=== PATIENT | male | born 1955 | race Two or more races ===

== ENCOUNTER 2022-04-12 07:15 | Outpatient (CLI) | payer OTHER | END 2022-04-12 07:18 | disposition home or self-care (01) | LOC: NUCLEAR 07:15 | PROVIDERS: ATTEND Internal Medicine Cardiovascular Disease | DX: I25.119 Atherosclerotic heart disease of native coronary artery with unspecified angina pectoris (principal) | CPT/HCPCS: 78452; 93017; A9500; J0153 ==

== ENCOUNTER 2022-04-12 11:09 | Outpatient (CLI) | payer OTHER | END 2022-04-12 11:13 | disposition home or self-care (01) | LOC: RAD 11:09 | PROVIDERS: ATTEND Student in an Organized Health Care Education/Training Program | DX: M51.36 Other intervertebral disc degeneration, lumbar region (principal); M54.16 Radiculopathy, lumbar region ==

== ENCOUNTER 2022-04-13 08:27 | Outpatient (CLI) | payer OTHER | END 2022-04-13 08:28 | disposition home or self-care (01) | LOC: LAB 08:27 | PROVIDERS: ATTEND Internal Medicine Cardiovascular Disease | DX: E78.00 Pure hypercholesterolemia, unspecified (principal); E11.9 Type 2 diabetes mellitus without complications; I10 Essential (primary) hypertension ==

== ENCOUNTER 2022-09-05 09:13 | Outpatient (CLI) | payer OTHER | END 2022-09-05 09:22 | disposition home or self-care (01) | LOC: LAB 09:13 | DX: I11.9 Hypertensive heart disease without heart failure (principal); E11.9 Type 2 diabetes mellitus without complications; R00.2 Palpitations; E78.2 Mixed hyperlipidemia; M54.2 Cervicalgia ==

== ENCOUNTER 2022-10-18 07:27 | Outpatient (CLI) | payer OTHER | END 2022-10-18 07:29 | disposition home or self-care (01) | LOC: LAB 07:27 | DX: E78.2 Mixed hyperlipidemia (principal); E53.9 Vitamin B deficiency, unspecified; Z11.3 Encounter for screening for infections with a predominantly sexual mode of transmission; E83.52 Hypercalcemia; M06.9 Rheumatoid arthritis, unspecified; Z12.11 Encounter for screening for malignant neoplasm of colon; R10.9 Unspecified abdominal pain; B18.2 Chronic viral hepatitis C; Z12.5 Encounter for screening for malignant neoplasm of prostate; M10.071 Idiopathic gout, right ankle and foot; N39.0 Urinary tract infection, site not specified; E03.8 Other specified hypothyroidism; E11.9 Type 2 diabetes mellitus without complications; B96.81 Helicobacter pylori [H. pylori] as the cause of diseases classified elsewhere; K29.00 Acute gastritis without bleeding ==

== ENCOUNTER 2022-10-18 08:44 | Outpatient (CLI) | payer OTHER | END 2022-10-18 08:48 | disposition home or self-care (01) | LOC: SONOGRAMA 08:44 | DX: R10.13 Epigastric pain (principal); N18.9 Chronic kidney disease, unspecified ==

== ENCOUNTER 2022-12-28 10:03 | Inpatient (IN) | payer OTHER ==
[~2022-12-28] VITALS: Ht 170.2 cm; Wt 113.9 kg
[2022-12-28 12:09] LABS: HEMATOCRIT 34.6 % (39.0-48.0); HEMOGLOBIN 11.3 g/dL (13-16.00); MEAN CELL VOLUME 99.1 fL (80.0-100.00); MEAN CORPUSCULAR HEMOGLOBIN 32.4 pg (27.00-32.0); MEAN CORPUSCULAR HGB CONC 32.7 g/dl (32.0-36.0); PLATELET COUNT 202 K/uL (150-450); RED CELL DISTRIBUTION WIDTH 14.1 % (11.5-14.5)
[2022-12-28 12:38] LABS: INR 1.11; PARTIAL THROMBOPLASTIN TIME 30.8 SECONDS (22.0-34.0); PROTHROMBIN TIME 11.6 SECONDS (9.0-11.5)
[2022-12-28 12:45] LABS: ALBUMIN 3.6 gm/dL (3.4-5.0); BILIRUBIN TOTAL 0.39 mg/dL (0.3-1.2); BILIRUBIN,CONJUGATED 0.13 mg/dL (0.0-0.2); BILIRUBIN,UNCONJUGATED 0.26 mg/dL (0.0-0.6); CALCIUM 8.4 mg/dL (8.5-10.1); CREATININE SERUM 3.4 mg/dL (0.70-1.30); GFR 18.1; TOTAL PROTEIN 6.5 gm/dL (6.4-8.2)
[2022-12-28 12:58] LABS: POTASSIUM 8.41 mEq/L (3.5-5.1)
[2022-12-28 16:43] LABS: ABG PH 7.211 (7.35-7.45)
[2022-12-28 16:44] LABS: ABG PO2 89.5 mmHg (80-100); ABG pCO2 31.7 mmHg (35-45); BASE EXCESS 14.1 mmol/l; BICARBONATE 12.4 mmol/l (23-25); SaO2 93.7 %; Tco2 13.4 mmol/l; allen test SATISFACTORY; o2 21 %; puncture site RADIAL RIGHT
[2022-12-28 18:18] LABS: BLOOD UREA NITROGEN 72 mg/dL (7-18); BUN CREA RATIO 24 (7.0-25.0); CALCIUM 8.6 mg/dL (8.5-10.1); CARBON DIOXIDE 16 mEq/L (21-32); CHOLESTEROL 71 mg/dL (0-200); CKMB 3.3 NG/ML (0.5-3.6); CREATININE SERUM 2.97 mg/dL (0.70-1.30); GFR 21.16; GLUCOSE FASTING 53 mg/dL (65-100); HDL 24 mg/dl (40-60); LDL 20 mg/dl (0-130); OSMOLALITY SERUM 292 MOSM/KG (275-295); PHOSPHOKINASE CREATININE 312 U/L (39-308); SODIUM 137 mmol/L (136-145); TRIGLYCERIDES 136 mg/dL (0-150); VLDL 27 (0-39)
[2022-12-28 18:27] LABS: ANION GAP 10 (10.0-20.0); C-REACTIVE PROTEIN < 0.29 MG/DL (0.00-0.29); CHLORIDE 118 mmol/L (98-107)
[2022-12-28 18:30] LABS: POTASSIUM 7.16 mEq/L (3.5-5.1)
[2022-12-28 20:38] LABS: CALCIUM 8.6 mg/dL (8.5-10.1); CREATININE SERUM 2.96 mg/dL (0.70-1.30); GFR 21.24
[2022-12-28 20:40] LABS: POTASSIUM 7.79 mEq/L (3.5-5.1)
[2022-12-29 06:53] LABS: HEMATOCRIT 36.1 % (39.0-48.0); HEMOGLOBIN 11.9 g/dL (13-16.00); MEAN CELL VOLUME 97.1 fL (80.0-100.00); MEAN CORPUSCULAR HEMOGLOBIN 32.2 pg (27.00-32.0); MEAN CORPUSCULAR HGB CONC 33.1 g/dl (32.0-36.0); PLATELET COUNT 200 K/uL (150-450); RED BLOOD COUNT 3.71 M/uL (4.00-6.00); RED CELL DISTRIBUTION WIDTH 13.8 % (11.5-14.5)
[2022-12-29 07:30] LABS: ALBUMIN 3.2 gm/dL (3.4-5.0); CALCIUM 8.1 mg/dL (8.5-10.1); CREATININE SERUM 2.18 mg/dL (0.70-1.30); GFR 30.23; PHOSPHOROUS 3.8 mg/dL (2.5-4.9)
[2022-12-29 08:35] LABS: POTASSIUM 6.27 mEq/L (3.5-5.1)
[2022-12-30 06:56] LABS: HEMATOCRIT 35.5 % (39.0-48.0); HEMOGLOBIN 12.1 g/dL (13-16.00); MEAN CELL VOLUME 95.1 fL (80.0-100.00); MEAN CORPUSCULAR HEMOGLOBIN 32.4 pg (27.00-32.0); MEAN CORPUSCULAR HGB CONC 34.1 g/dl (32.0-36.0); PLATELET COUNT 204 K/uL (150-450); RED BLOOD COUNT 3.74 M/uL (4.00-6.00); RED CELL DISTRIBUTION WIDTH 13.7 % (11.5-14.5)
[2022-12-30 07:23] LABS: ALBUMIN 3.1 gm/dL (3.4-5.0); CALCIUM 7.8 mg/dL (8.5-10.1); CREATININE SERUM 1.71 mg/dL (0.70-1.30); GFR 40.01; PHOSPHOROUS 3.6 mg/dL (2.5-4.9); POTASSIUM 4.28 mEq/L (3.5-5.1)
[2022-12-30 07:28] LABS: CALCIUM 8.1 mg/dL (8.5-10.1); CREATININE SERUM 1.69 mg/dL (0.70-1.30); GFR 40.56; POTASSIUM 4.03 mEq/L (3.5-5.1)
[2022-12-31 20:32] LABS: ALBUMIN 3.1 gm/dL (3.4-5.0); CALCIUM 8.1 mg/dL (8.5-10.1); CREATININE SERUM 1.47 mg/dL (0.70-1.30); GFR 47.64; PHOSPHOROUS 2.1 mg/dL (2.5-4.9); POTASSIUM 4.1 mEq/L (3.5-5.1)
[2023-01-03 06:46] LABS: HEMATOCRIT 39.7 % (39.0-48.0); MEAN CELL VOLUME 96.2 fL (80.0-100.00); MEAN CORPUSCULAR HEMOGLOBIN 31.4 pg (27.00-32.0); MEAN CORPUSCULAR HGB CONC 32.6 g/dl (32.0-36.0); PLATELET COUNT 208 K/uL (150-450); RED BLOOD COUNT 4.13 M/uL (4.00-6.00); RED CELL DISTRIBUTION WIDTH 13.6 % (11.5-14.5)
[2023-01-03 08:52] LABS: ALBUMIN 2.8 gm/dL (3.4-5.0); BILIRUBIN TOTAL 0.39 mg/dL (0.3-1.2); CALCIUM 7.8 mg/dL (8.5-10.1); CREATININE SERUM 1.21 mg/dL (0.70-1.30); GFR 59.63; GLOBULINA 2.9 G/DL (2.4-3.5); MAGNESIUM 1.6 mg/dL (1.8-2.4); PHOSPHOROUS 2.2 mg/dL (2.5-4.9); POTASSIUM 3.76 mEq/L (3.5-5.1); TOTAL PROTEIN 5.7 gm/dL (6.4-8.2)
[2023-01-04 07:36] LABS: ALBUMIN 2.8 gm/dL (3.4-5.0); BILIRUBIN TOTAL 0.33 mg/dL (0.3-1.2); CALCIUM 8.3 mg/dL (8.5-10.1); CREATININE SERUM 1.15 mg/dL (0.70-1.30); GFR 63.24; POTASSIUM 4.46 mEq/L (3.5-5.1); TOTAL PROTEIN 5.8 gm/dL (6.4-8.2)
== END 2023-01-06 21:01 | disposition home or self-care (01) | DRG 682 ==
LOC: ER 10:03 → ICU-2 16:13 → SEC-K 16:13 → ICU-2 22:52 → MEDI 12-30 11:29 → ICU-2 12-30 11:32 → ICU 12-30 21:09 → MEDJ 01-04 17:45
PROVIDERS: General Practice; Internal Medicine; Internal Medicine Nephrology; ADMIT Internal Medicine; ATTEND Internal Medicine
PROC: B24BZZZ Ultrasonography of Heart with Aorta (ICD-10-PCS; 2022-12-28)
PROC: BW24ZZZ Computerized Tomography (CT Scan) of Chest and Abdomen (ICD-10-PCS; 2022-12-29)
PROC: 4A12X4Z Monitoring of Cardiac Electrical Activity, External Approach (ICD-10-PCS; principal; 2023-01-04)
DX: N17.9 Acute kidney failure, unspecified (principal); I50.23 Acute on chronic systolic (congestive) heart failure; I13.0 Hypertensive heart and chronic kidney disease with heart failure and stage 1 through stage 4 chronic kidney disease, or unspecified chronic kidney disease; L98.419 Non-pressure chronic ulcer of buttock with unspecified severity; L08.9 Local infection of the skin and subcutaneous tissue, unspecified; B96.5 Pseudomonas (aeruginosa) (mallei) (pseudomallei) as the cause of diseases classified elsewhere; B95.2 Enterococcus as the cause of diseases classified elsewhere; B96.1 Klebsiella pneumoniae [K. pneumoniae] as the cause of diseases classified elsewhere; E87.5 Hyperkalemia; E86.0 Dehydration; I44.1 Atrioventricular block, second degree; J10.1 Influenza due to other identified influenza virus with other respiratory manifestations; I25.10 Atherosclerotic heart disease of native coronary artery without angina pectoris; Z95.1 Presence of aortocoronary bypass graft; I48.0 Paroxysmal atrial fibrillation; N18.30 Chronic kidney disease, stage 3 unspecified; Z20.822 Contact with and (suspected) exposure to COVID-19

== ENCOUNTER → 2023-02-25 08:19 | Outpatient (CLI) | payer OTHER ==
[2023-02-25 09:49] LABS: URINE APPEARANCE Clear; URINE BILIRRUBIN Negative (NEGATIVE); URINE BLOOD Negative; URINE COLOR Yellow; URINE LEUKOCYTE Negative; URINE NITRATE Negative; URINE PROTEIN Negative (NEGATIVE); URINE UROBILINOGEN 0.2 E.U./dl
[2023-02-25 09:53] LABS: URINE EPITHELIAL CELLS 2.7 uL (0.0-38.8); URINE RBC 2.2 uL (0.0-20.8)
[2023-02-25 09:59] LABS: URINE GLUCOSE >=1000 MG/DL (NEGATIVE); URINE WBC 0.3 uL (0.0-23.2)
[2023-02-25 10:09] LABS: ALBUMIN 3.7 gm/dL (3.4-5.0); BILIRUBIN TOTAL 0.57 mg/dL (0.3-1.2); CALCIUM 9.1 mg/dL (8.5-10.1); CHOL HDL RATIO 4.2 (0-5.0); CREATININE SERUM 1.64 mg/dL (0.70-1.30); GFR 41.86; GLOBULINA 3.6 G/DL (2.4-3.5); POTASSIUM 5.08 mEq/L (3.5-5.1); PROSTATIC SPECIFIC ANTIGEN 1.17 NG/ML (0.010-4.00); TOTAL PROTEIN 7.3 gm/dL (6.4-8.2); TSH 1.42 uIU/mL (0.358-3.74)
== END | disposition home or self-care (01) ==
LOC: LAB 08:19
PROVIDERS: ATTEND General Practice
DX: E11.9 Type 2 diabetes mellitus without complications (principal); M06.9 Rheumatoid arthritis, unspecified; E03.8 Other specified hypothyroidism; N39.9 Disorder of urinary system, unspecified; E78.2 Mixed hyperlipidemia; E83.52 Hypercalcemia; Z12.5 Encounter for screening for malignant neoplasm of prostate; E72.11 Homocystinuria; N40.0 Benign prostatic hyperplasia without lower urinary tract symptoms; N39.0 Urinary tract infection, site not specified

== ENCOUNTER 2023-03-04 08:46 | Outpatient (CLI) | payer OTHER | END 2023-03-04 08:50 | disposition home or self-care (01) | LOC: LAB 08:46 | DX: B96.81 Helicobacter pylori [H. pylori] as the cause of diseases classified elsewhere (principal); K29.00 Acute gastritis without bleeding ==

== ENCOUNTER 2023-05-04 08:16 | Outpatient (CLI) | payer OTHER | END 2023-05-04 11:50 | disposition home or self-care (01) | LOC: SONOGRAMA 08:16 | DX: M54.16 Radiculopathy, lumbar region (principal); M54.9 Dorsalgia, unspecified; N13.9 Obstructive and reflux uropathy, unspecified; M54.12 Radiculopathy, cervical region; R07.9 Chest pain, unspecified; E21.3 Hyperparathyroidism, unspecified | CPT/HCPCS: 72141; 72146; 72148 ==

== ENCOUNTER 2023-05-19 08:48 | Outpatient (CLI) | payer OTHER ==
[2023-05-19 10:18] LABS: URINE APPEARANCE Clear; URINE BILIRRUBIN Negative (NEGATIVE); URINE BLOOD Negative; URINE COLOR Yellow; URINE LEUKOCYTE Negative; URINE NITRATE Negative; URINE PROTEIN Negative (NEGATIVE)
[2023-05-19 10:20] LABS: URINE BACTERIA 12.5 uL (0.0-1933); URINE RBC 3.1 uL (0.0-20.8)
[2023-05-19 10:23] LABS: HEMATOCRIT 44.9 % (39.0-48.0); HEMOGLOBIN 14.6 g/dL (13-16.00); MEAN CELL VOLUME 93.8 fL (80.0-100.00); MEAN CORPUSCULAR HEMOGLOBIN 30.5 pg (27.00-32.0); MEAN CORPUSCULAR HGB CONC 32.5 g/dl (32.0-36.0); PLATELET COUNT 219 K/uL (150-450); RED BLOOD COUNT 4.79 M/uL (4.00-6.00); RED CELL DISTRIBUTION WIDTH 14.5 % (11.5-14.5)
[2023-05-19 10:24] LABS: URINE GLUCOSE >=1000 MG/DL (NEGATIVE)
[2023-05-19 10:35] LABS: ERYTHROCYTE SEDIMENTATION RATE 11 mm/hr
[2023-05-19 10:58] LABS: ALBUMIN 3.9 gm/dL (3.4-5.0); BILIRUBIN TOTAL 0.58 mg/dL (0.3-1.2); CALCIUM 9.2 mg/dL (8.5-10.1); CHOL HDL RATIO 2.4 (0-5.0); CREATININE SERUM 1.76 mg/dL (0.70-1.30); GFR 38.59; GLOBULINA 3.5 G/DL (2.4-3.5); POTASSIUM 5.68 mEq/L (3.5-5.1); TOTAL PROTEIN 7.4 gm/dL (6.4-8.2)
[2023-05-19 17:56] LABS: PROSTATIC SPECIFIC ANTIGEN 1.41 NG/ML (0.010-4.00); TSH 1.31 uIU/mL (0.358-3.74)
== END 2023-05-19 08:49 | disposition home or self-care (01) ==
LOC: LAB 08:48
PROVIDERS: ATTEND Internal Medicine Cardiovascular Disease
DX: E11.9 Type 2 diabetes mellitus without complications (principal); E78.2 Mixed hyperlipidemia; I11.9 Hypertensive heart disease without heart failure; R00.2 Palpitations; E03.8 Other specified hypothyroidism; N39.0 Urinary tract infection, site not specified; M06.9 Rheumatoid arthritis, unspecified; E83.52 Hypercalcemia; Z12.5 Encounter for screening for malignant neoplasm of prostate

== ENCOUNTER 2023-07-12 08:29 | Outpatient (CLI) | payer OTHER ==
[2023-07-12 09:56] LABS: ALBUMIN 3.9 gm/dL (3.4-5.0); BILIRUBIN TOTAL 0.83 mg/dL (0.3-1.2); CALCIUM 8.8 mg/dL (8.5-10.1); CHOL HDL RATIO 2.6 (0-5.0); CREATININE SERUM 1.69 mg/dL (0.70-1.30); GFR 40.44; GLOBULINA 3.2 G/DL (2.4-3.5); POTASSIUM 4.45 mEq/L (3.5-5.1); TOTAL PROTEIN 7.1 gm/dL (6.4-8.2)
== END 2023-07-12 08:30 | disposition home or self-care (01) ==
LOC: LAB 08:29
PROVIDERS: ATTEND Internal Medicine Cardiovascular Disease
DX: I11.9 Hypertensive heart disease without heart failure (principal); E78.2 Mixed hyperlipidemia

== ENCOUNTER 2023-10-16 09:05 | Outpatient (CLI) | payer OTHER | END 2023-10-16 09:08 | disposition home or self-care (01) | LOC: SONOGRAMA 09:05 | DX: N18.32 Chronic kidney disease, stage 3b (principal); E78.5 Hyperlipidemia, unspecified; I50.20 Unspecified systolic (congestive) heart failure; I12.9 Hypertensive chronic kidney disease with stage 1 through stage 4 chronic kidney disease, or unspecified chronic kidney disease; I73.9 Peripheral vascular disease, unspecified ==

== ENCOUNTER 2023-11-04 08:43 | Outpatient (CLI) | payer OTHER ==
[2023-11-04 10:26] LABS: URINE APPEARANCE Clear; URINE BILIRRUBIN Negative (NEGATIVE); URINE BLOOD Negative; URINE COLOR Yellow; URINE KETONE Negative (NEGATIVE); URINE LEUKOCYTE Negative; URINE NITRATE Negative; URINE PROTEIN Negative (NEGATIVE); URINE UROBILINOGEN 0.2 E.U./dl
[2023-11-04 10:32] LABS: URINE BACTERIA 27.7 uL (0.0-1933); URINE EPITHELIAL CELLS 4.9 uL (0.0-38.8); URINE RBC 3.5 uL (0.0-20.8); URINE WBC 2.6 uL (0.0-23.2)
[2023-11-04 10:52] LABS: URINE GLUCOSE >=1000 MG/DL (NEGATIVE)
[2023-11-04 11:04] LABS: BILIRUBIN TOTAL 0.98 mg/dL (0.3-1.2); CHOL HDL RATIO 2.2 (0-5.0); CREATININE SERUM 1.59 mg/dL (0.70-1.30); GFR 43.38; GLOBULINA 3.1 G/DL (2.4-3.5); POTASSIUM 4.12 mEq/L (3.5-5.1); TOTAL PROTEIN 7.1 gm/dL (6.4-8.2); TSH 1.2 uIU/mL (0.358-3.74)
== END 2023-11-04 08:49 | disposition home or self-care (01) ==
LOC: LAB 08:43
DX: E11.9 Type 2 diabetes mellitus without complications (principal); N39.0 Urinary tract infection, site not specified; E78.2 Mixed hyperlipidemia; E03.8 Other specified hypothyroidism; Z12.5 Encounter for screening for malignant neoplasm of prostate

== ENCOUNTER 2024-01-16 08:22 | Outpatient (CLI) | payer OTHER ==
[2024-01-16 09:00] LABS: PH,URINE 6.5 (5.0-8.0); URINE APPEARANCE Clear; URINE BILIRRUBIN Negative (NEGATIVE); URINE BLOOD Negative; URINE COLOR Yellow; URINE GLUCOSE Negative (NEGATIVE); URINE KETONE Negative (NEGATIVE); URINE LEUKOCYTE Negative; URINE NITRATE Negative; URINE PROTEIN Negative (NEGATIVE); URINE UROBILINOGEN 0.2 E.U./dl
[2024-01-16 09:02] LABS: URINE BACTERIA 7.5 uL (0.0-1933); URINE EPITHELIAL CELLS 1.5 uL (0.0-38.8)
[2024-01-16 09:09] LABS: URINE RBC 0.4 uL (0.0-20.8); URINE WBC 1.2 uL (0.0-23.2)
[2024-01-16 09:12] LABS: HEMATOCRIT 42.1 % (39.0-48.0); HEMOGLOBIN 14.2 g/dL (13-16.00); MEAN CELL VOLUME 96.5 fL (80.0-100.00); MEAN CORPUSCULAR HEMOGLOBIN 32.4 pg (27.00-32.0); MEAN CORPUSCULAR HGB CONC 33.6 g/dl (32.0-36.0); PLATELET COUNT 166 K/uL (150-450); RED BLOOD COUNT 4.37 M/uL (4.00-6.00); RED CELL DISTRIBUTION WIDTH 14.2 % (11.5-14.5)
[2024-01-16 09:55] LABS: BILIRUBIN TOTAL 1.1 mg/dL (0.3-1.2); CALCIUM 8.9 mg/dL (8.5-10.1); CHOL HDL RATIO 2.2 (0-5.0); CREATININE SERUM 1.48 mg/dL (0.70-1.30); GFR 46.99; GLOBULINA 3.2 G/DL (2.4-3.5); POTASSIUM 4.64 mEq/L (3.5-5.1); TOTAL PROTEIN 7.2 gm/dL (6.4-8.2); TSH 1.56 uIU/mL (0.358-3.74)
== END 2024-01-16 08:27 | disposition home or self-care (01) ==
LOC: LAB 08:22
PROVIDERS: ATTEND Internal Medicine Cardiovascular Disease
DX: I11.9 Hypertensive heart disease without heart failure (principal); E11.9 Type 2 diabetes mellitus without complications; R00.2 Palpitations; E78.2 Mixed hyperlipidemia

== ENCOUNTER → 2024-03-06 08:28 | Outpatient (CLI) | payer OTHER ==
[2024-03-06 09:43] LABS: URINE APPEARANCE Clear; URINE BILIRRUBIN Negative (NEGATIVE); URINE BLOOD Negative; URINE COLOR Yellow; URINE KETONE Negative (NEGATIVE); URINE LEUKOCYTE Negative; URINE NITRATE Negative; URINE PROTEIN Negative (NEGATIVE); URINE UROBILINOGEN 0.2 E.U./dl
[2024-03-06 09:56] LABS: URINE BACTERIA 7.5 uL (0.0-1933)
[2024-03-06 09:59] LABS: URINE CAST 0.61 uL (0.0-1.40); URINE EPITHELIAL CELLS 0.3 uL (0.0-38.8); URINE RBC 0.6 uL (0.0-20.8); URINE WBC 0.9 uL (0.0-23.2)
[2024-03-06 10:00] LABS: URINE GLUCOSE >=1000 MG/DL (NEGATIVE)
[2024-03-06 10:53] LABS: ALBUMIN 4.3 gm/dL (3.4-5.0); CALCIUM 9.4 mg/dL (8.5-10.1); CREATININE SERUM 1.6 mg/dL (0.70-1.30); GFR 42.95; PHOSPHOROUS 2.7 mg/dL (2.5-4.9); POTASSIUM 4.59 mEq/L (3.5-5.1)
== END | disposition home or self-care (01) ==
LOC: LAB 08:28
DX: N18.32 Chronic kidney disease, stage 3b (principal); E78.5 Hyperlipidemia, unspecified; I50.20 Unspecified systolic (congestive) heart failure; I12.9 Hypertensive chronic kidney disease with stage 1 through stage 4 chronic kidney disease, or unspecified chronic kidney disease; I73.9 Peripheral vascular disease, unspecified

== ENCOUNTER → 2024-05-11 08:37 | Outpatient (CLI) | payer OTHER ==
[2024-05-11 10:27] LABS: URINE APPEARANCE Clear; URINE BILIRRUBIN Negative (NEGATIVE); URINE BLOOD Negative; URINE COLOR Yellow; URINE KETONE Negative (NEGATIVE); URINE LEUKOCYTE Negative; URINE NITRATE Negative; URINE PROTEIN Negative (NEGATIVE); URINE UROBILINOGEN 0.2 E.U./dl
[2024-05-11 10:45] LABS: URINE BACTERIA 3.6 uL (0.0-1933); URINE CAST 0.14 uL (0.0-1.40); URINE EPITHELIAL CELLS 0.6 uL (0.0-38.8); URINE GLUCOSE >=1000 MG/DL (NEGATIVE); URINE WBC 0.4 uL (0.0-23.2)
[2024-05-11 10:58] LABS: HEMATOCRIT 45.2 % (39.0-48.0); HEMOGLOBIN 14.9 g/dL (13-16.00); MEAN CELL VOLUME 98.1 fL (80.0-100.00); MEAN CORPUSCULAR HEMOGLOBIN 32.4 pg (27.00-32.0); PLATELET COUNT 187 K/uL (150-450); RED CELL DISTRIBUTION WIDTH 14.7 % (11.5-14.5)
[2024-05-11 11:44] LABS: BILIRUBIN TOTAL 1.34 mg/dL (0.3-1.2); CALCIUM 9.2 mg/dL (8.5-10.1); CREATININE SERUM 1.4 mg/dL (0.70-1.30); GFR 50.1; GLOBULINA 3.3 G/DL (2.4-3.5); POTASSIUM 4.06 mEq/L (3.5-5.1); TOTAL PROTEIN 7.3 gm/dL (6.4-8.2); TSH 1.96 uIU/mL (0.358-3.74)
== END | disposition home or self-care (01) ==
LOC: LAB 08:37
PROVIDERS: ATTEND General Practice
DX: E72.11 Homocystinuria (principal); I10 Essential (primary) hypertension; E78.00 Pure hypercholesterolemia, unspecified; E03.8 Other specified hypothyroidism; R73.09 Other abnormal glucose; Z12.11 Encounter for screening for malignant neoplasm of colon; Z12.5 Encounter for screening for malignant neoplasm of prostate

== ENCOUNTER 2024-05-14 09:42 | Outpatient (CLI) | payer OTHER ==
[2024-05-14 12:49] LABS: ob POSITIVE (NEGATIVE)
== END 2024-05-14 13:07 | disposition home or self-care (01) ==
LOC: LAB 09:42
PROVIDERS: ATTEND General Practice
DX: E72.11 Homocystinuria (principal); I10 Essential (primary) hypertension; E78.00 Pure hypercholesterolemia, unspecified; E03.8 Other specified hypothyroidism; R73.09 Other abnormal glucose; Z12.11 Encounter for screening for malignant neoplasm of colon; Z12.5 Encounter for screening for malignant neoplasm of prostate

== ENCOUNTER → 2024-08-15 08:56 | Outpatient (CLI) | payer OTHER ==
[2024-08-15 09:31] LABS: BASO % 0.4 % (0.1-1.2); EOS # 0.65 (0.04-0.54); EOS % 8.2 % (0.7-7.0); HEMATOCRIT 43.9 % (40.1-51.0); HEMOGLOBIN 14.2 g/dL (13.7-17.5); LYMPH % 16.4 % (19.3-53.1); MEAN CORPUSCULAR HEMOGLOBIN 32.4 pg (25.6-32.2); MONO # 0.67 (0.24-0.82); MONO % 8.4 % (4.7-12.5); NEUT # 5.25 (1.56-6.13); NEUT % 66.2 % (34.0-71.1); PLATELET COUNT 194 K/uL (163-369); RED BLOOD COUNT 4.38 M/uL (4.63-6.08); RED CELL DISTRIBUTION WIDTH 14.9 % (11.6-14.4)
[2024-08-15 09:32] LABS: URINE APPEARANCE Clear; URINE BILIRRUBIN Negative (NEGATIVE); URINE BLOOD Negative; URINE COLOR Yellow; URINE KETONE Trace (NEGATIVE); URINE LEUKOCYTE Negative; URINE NITRATE Negative; URINE PROTEIN Negative (NEGATIVE); URINE UROBILINOGEN 0.2 E.U./dl
[2024-08-15 09:34] LABS: URINE BACTERIA 28.1 uL (0.0-1933); URINE CAST 4.56 uL (0.0-1.40); URINE EPITHELIAL CELLS 1.8 uL (0.0-38.8)
[2024-08-15 09:48] LABS: URINE GLUCOSE >=1000 MG/DL (NEGATIVE); URINE RBC 1.7 uL (0.0-20.8); URINE WBC 1.1 uL (0.0-23.2)
[2024-08-15 11:00] LABS: CALCIUM 8.6 mg/dL (8.5-10.1); CREATININE SERUM 2.13 mg/dL (0.70-1.30); GFR 30.87; POTASSIUM 4.69 mEq/L (3.5-5.1); TSH 1.67 uIU/mL (0.358-3.74)
== END | disposition home or self-care (01) ==
LOC: LAB 08:56
PROVIDERS: ATTEND General Practice
DX: R50.9 Fever, unspecified (principal); Z13.228 Encounter for screening for other metabolic disorders; N39.0 Urinary tract infection, site not specified; E03.8 Other specified hypothyroidism; Z12.5 Encounter for screening for malignant neoplasm of prostate; E72.11 Homocystinuria

== ENCOUNTER 2024-08-29 13:14 | Inpatient (IN) | payer OTHER ==
[~2024-08-29] VITALS: Ht 167.6 cm; Wt 72.6 kg
[2024-08-29] MEDS ORDERED: ELIQUIS2.5 MG PO (14:07)
[2024-08-29] MEDS ORDERED: CARVEDILOL ER40 MG PO (14:07)
[2024-08-29] MEDS ORDERED: LIPITOR80 MG PO (14:08)
[2024-08-29] MEDS ORDERED: LASIX40 MG PO (14:08)
[2024-08-29] MEDS ORDERED: JARDIANCE10 MG (14:08)
[2024-08-29] MEDS ORDERED: PLAVIX75 MG PO (14:08)
[2024-08-29] MEDS ORDERED: CANDESARTAN CILE8 MG (14:08)
[2024-08-29] MEDS ORDERED: PANTOPRAZOLE SO40 M2 PO (14:09)
[2024-08-29] MEDS ORDERED: 0.9 % SODIUM CHLORIDE 1,000 ML IV SCH (14:30)
[2024-08-29 15:19] LABS: INR 1.17; PARTIAL THROMBOPLASTIN TIME 28.5 SECONDS (22.0-34.0); PROTHROMBIN TIME 12.6 SECONDS (9.0-11.5)
[2024-08-29 15:23] LABS: BASO % 0.6 % (0.1-1.2); BILIRUBIN TOTAL 0.88 mg/dL (0.3-1.2); CREATININE SERUM 1.64 mg/dL (0.70-1.30); EOS % 7.3 % (0.7-7.0); GFR 41.74; GLOBULINA 3.7 G/DL (2.4-3.5); HEMATOCRIT 43.2 % (40.1-51.0); HEMOGLOBIN 13.6 g/dL (13.7-17.5); LYMPH % 18.3 % (19.3-53.1); MEAN CORPUSCULAR HEMOGLOBIN 31.3 pg (25.6-32.2); MONO # 0.74 (0.24-0.82); NEUT # 5.28 (1.56-6.13); NEUT % 64.6 % (34.0-71.1); PLATELET COUNT 211 K/uL (163-369); POTASSIUM 4.62 mEq/L (3.5-5.1); RED BLOOD COUNT 4.35 M/uL (4.63-6.08); RED CELL DISTRIBUTION WIDTH 14.6 % (11.6-14.4); TOTAL PROTEIN 7.7 gm/dL (6.4-8.2)
[2024-08-29 19:06] LABS: URINE APPEARANCE Clear; URINE BILIRRUBIN Negative (NEGATIVE); URINE BLOOD Negative; URINE COLOR Yellow; URINE KETONE Negative (NEGATIVE); URINE LEUKOCYTE Negative; URINE NITRATE Negative; URINE PROTEIN Negative (NEGATIVE); URINE UROBILINOGEN 0.2 E.U./dl
[2024-08-29 19:10] LABS: URINE BACTERIA 14.6 uL (0.0-1933); URINE EPITHELIAL CELLS 3.6 uL (0.0-38.8); URINE WBC 2.5 uL (0.0-23.2)
[2024-08-29 19:13] LABS: URINE CAST 0.58 uL (0.0-1.40); URINE GLUCOSE >=1000 MG/DL (NEGATIVE)
[2024-08-29] MEDS ORDERED: INSULIN LISPRO 1,000 UNIT/10 ML UNITS SUBCUTANEO PRN (20:30)
[2024-08-29] MEDS ORDERED: DEXTROSE 50 % IN WATER 0.5 G/ML DISP.SYRIN IV PRN (20:30)
[2024-08-29] MEDS ORDERED: PANTOPRAZOLE SODIUM 40 MG/VIAL VIAL IV SCH (21:00)
[2024-08-29 22:49] LABS: COVID-19 AG NEGATIVE (NEGATIVE)
[2024-08-30] MEDS ORDERED: PIPERACILLIN/TAZOBACTAM SODIUM 2.25 GM in DEXTROSE 5 % IN WATER 50 ML IV SCH
[2024-08-30 02:08] VITALS: BP 110/79; O2SAT 96
[2024-08-30] MEDS ORDERED: CANDESARTAN CILEXETIL 8 MG TAB PO SCH (09:00)
[2024-08-30] MEDS ORDERED: APIXABAN 2.5 MG TABLET PO SCH (09:00)
[2024-08-30] MEDS ORDERED: FUROsemide 40 MG TABLET PO SCH (09:00)
[2024-08-30] MEDS ORDERED: CARVEDILOL 25 MG TABLET PO SCH (09:00)
[2024-08-30] MEDS ORDERED: PATIENTS OWN MEDICATION (MEDICAMENTO EN PISO) PO SCH (09:00)
[2024-08-30] MEDS ORDERED: CLOPIDOGREL BISULFATE 75 MG TABLET PO SCH (09:00)
[2024-08-30] MEDS ORDERED: LINEZOLID IN DEXTROSE 5% 600 MG/300 ML PIGGYBAG IV SCH (17:00)
[2024-08-30] MEDS ORDERED: LACTOBACILLUS ACIDOPHILUS 1 CAP CAP PO SCH (17:00)
[2024-08-30] MEDS ORDERED: EMOLLIENTS 6 OZ BOTTLE TOP SCH (17:00)
[2024-08-30] MEDS ORDERED: ATORVASTATIN CALCIUM 40 MG TABLET PO SCH (17:00)
[2024-08-30 17:45] VITALS: BP 112/77; O2SAT 99
[2024-08-31 01:59] VITALS: BP 106/77; O2SAT 97
[2024-08-31] MEDS ORDERED: ATORVASTATIN CALCIUM 40 MG TABLET PO SCH (09:00)
[2024-08-31 09:25] VITALS: BP 126/84; O2SAT 98
[2024-08-31 17:00] VITALS: BP 136/94
[2024-09-01 01:54] VITALS: BP 118/68; O2SAT 99
[2024-09-01 09:16] VITALS: BP 132/91; O2SAT 98
[2024-09-01 18:15] VITALS: BP 129/92
[2024-09-02 00:56] VITALS: BP 119/87; O2SAT 96
[2024-09-02 07:26] LABS: BASO % 0.6 % (0.1-1.2); EOS % 8.9 % (0.7-7.0); HEMATOCRIT 41.5 % (40.1-51.0); HEMOGLOBIN 13.1 g/dL (13.7-17.5); LYMPH # 1.33 (1.18-3.74); LYMPH % 14.8 % (19.3-53.1); MONO # 0.85 (0.24-0.82); MONO % 9.5 % (4.7-12.5); NEUT # 5.92 (1.56-6.13); NEUT % 65.9 % (34.0-71.1); PLATELET COUNT 190 K/uL (163-369); RED BLOOD COUNT 4.22 M/uL (4.63-6.08); RED CELL DISTRIBUTION WIDTH 14.4 % (11.6-14.4)
[2024-09-02 08:07] LABS: ALBUMIN 3.2 gm/dL (3.4-5.0); BILIRUBIN TOTAL 0.91 mg/dL (0.3-1.2); CALCIUM 8.4 mg/dL (8.5-10.1); CREATININE SERUM 1.41 mg/dL (0.70-1.30); GFR 49.69; POTASSIUM 4.36 mEq/L (3.5-5.1); TOTAL PROTEIN 6.2 gm/dL (6.4-8.2)
[2024-09-02 08:08] LABS: C-REACTIVE PROTEIN 1.09 MG/DL (0.00-0.29)
[2024-09-02 08:11] LABS: ERYTHROCYTE SEDIMENTATION RATE 9 mm/hr (0-20)
[2024-09-02 09:17] VITALS: BP 140/82; O2SAT 99
[2024-09-02] MEDS ORDERED: APIXABAN 5 MG TABLET PO SCH (17:00)
[2024-09-02] MEDS ORDERED: LINEZOLID 600 MG TABLET PO SCH (17:00)
[2024-09-02 18:26] VITALS: BP 122/78
[2024-09-02] MEDS ORDERED: PANTOPRAZOLE SODIUM 40 MG TABLET.DR PO SCH (21:00)
[2024-09-03 01:28] VITALS: BP 134/85; O2SAT 92
[2024-09-03 09:45] VITALS: BP 11/81; O2SAT 98
[2024-09-03] MEDS ORDERED: LINEZOLID600 MG PO (13:20)
[2024-09-03] MEDS ORDERED: LUBRIDERM DAIL177 ML TOP (13:20)
[2024-09-03] MEDS ORDERED: ELIQUIS5 MG PO (13:20)
[2024-09-03] MEDS ORDERED: LEVOFLOXACIN750 MG PO (13:20)
[2024-09-03] MEDS ORDERED: INTESTINEX680 M1 PO (13:20)
== END 2024-09-03 15:21 | disposition home or self-care (01) | DRG 603 ==
LOC: ER 17:16 → MEDJ 20:58
PROVIDERS: Emergency Medicine; General Practice; ADMIT Internal Medicine; ATTEND Internal Medicine
PROC: BQ28ZZZ Computerized Tomography (CT Scan) of Left Knee (ICD-10-PCS; principal; 2024-08-29)
PROC: B54DZZZ Ultrasonography of Bilateral Lower Extremity Veins (ICD-10-PCS; 2024-08-29)
DX: L03.116 Cellulitis of left lower limb (principal); I82.402 Acute embolism and thrombosis of unspecified deep veins of left lower extremity; N17.9 Acute kidney failure, unspecified; I10 Essential (primary) hypertension; I25.10 Atherosclerotic heart disease of native coronary artery without angina pectoris

== ENCOUNTER → 2024-11-22 08:32 | Outpatient (CLI) | payer OTHER ==
[~2024-11-22 08:32] MED LIST: CANDESARTAN CILE8 MG; CARVEDILOL ER40 MG PO; ELIQUIS2.5 MG PO; ELIQUIS5 MG PO; INTESTINEX680 M1 PO; JARDIANCE10 MG; LASIX40 MG PO; LEVOFLOXACIN750 MG PO; LINEZOLID600 MG PO; LIPITOR80 MG PO; LUBRIDERM DAIL177 ML TOP; PANTOPRAZOLE SO40 M2 PO; PLAVIX75 MG PO
[2024-11-22 09:25] LABS: BASO % 0.6 % (0.1-1.2); EOS # 0.75 (0.04-0.54); EOS % 10.8 % (0.7-7.0); LYMPH # 1.52 (1.18-3.74); LYMPH % 22.0 % (19.3-53.1); MEAN PLATELET VOLUME 10.50 fl (9.4-12.4); MONO # 0.63 (0.24-0.82); MONO % 9.1 % (4.7-12.5); NEUT # 3.97 (1.56-6.13); NEUT % 57.4 % (34.0-71.1); RED CELL DISTRIBUTION WIDTH 14.6 % (11.6-14.4)
[2024-11-22 09:27] LABS: URINE APPEARANCE Clear; URINE BILIRRUBIN Negative (NEGATIVE); URINE BLOOD Negative; URINE COLOR Yellow; URINE KETONE Negative (NEGATIVE); URINE LEUKOCYTE Negative; URINE NITRATE Negative; URINE PROTEIN Negative (NEGATIVE); URINE UROBILINOGEN 0.2 E.U./dl
[2024-11-22 09:31] LABS: URINE BACTERIA 6.0 uL (0.0-1933)
[2024-11-22 10:02] LABS: URINE CAST 0.00 uL (0.0-1.40); URINE EPITHELIAL CELLS 1.3 uL (0.0-38.8); URINE GLUCOSE >=1000 MG/DL (NEGATIVE); URINE RBC 1.0 uL (0.0-20.8); URINE WBC 1.5 uL (0.0-23.2)
[2024-11-22 10:26] LABS: ALT/SGPT 30.0 U/L (12-78); AST/SGOT 21.0 U/L (15-37); BILIRUBIN TOTAL 1.13 mg/dL (0.3-1.2); BUN CREA RATIO 15.0 (7.0-25.0); CHOL HDL RATIO 2.0 (0-5.0); CREATININE SERUM 1.56 mg/dL (0.70-1.30); GFR 44.22; GLOBULINA 3.7 G/DL (2.4-3.5); GLUCOSE FASTING 89.0 mg/dL (65-100); HDL 51.0 mg/dl (40-60); LDL 32.0 mg/dl (0-130); OSMOLALITY SERUM 288.0 MOSM/KG (275-295); PROSTATIC SPECIFIC ANTIGEN 1.7 NG/ML (0.010-4.00); TSH 1.81 uIU/mL (0.358-3.74); VLDL 18.0 (0-39)
== END | disposition home or self-care (01) ==
LOC: LAB 08:32
DX: N40.0 Benign prostatic hyperplasia without lower urinary tract symptoms (principal); I10 Essential (primary) hypertension; E11.9 Type 2 diabetes mellitus without complications; E78.00 Pure hypercholesterolemia, unspecified

== ENCOUNTER 2025-03-04 07:51 | Outpatient (CLI) | payer OTHER ==
[2025-03-04 08:34] LABS: URINE APPEARANCE Clear; URINE BILIRRUBIN Negative (NEGATIVE); URINE BLOOD Negative; URINE COLOR Yellow; URINE KETONE Negative (NEGATIVE); URINE LEUKOCYTE Negative; URINE NITRATE Negative; URINE PROTEIN Negative (NEGATIVE); URINE UROBILINOGEN 0.2 E.U./dl
[2025-03-04 08:35] LABS: BASO % 0.6 % (0.1-1.2); EOS # 0.66 (0.04-0.54); EOS % 9.1 % (0.7-7.0); LYMPH # 1.41 (1.18-3.74); LYMPH % 19.4 % (19.3-53.1); MEAN PLATELET VOLUME 10.20 fl (9.4-12.4); MONO # 0.68 (0.24-0.82); MONO % 9.4 % (4.7-12.5); NEUT # 4.40 (1.56-6.13); NEUT % 60.7 % (34.0-71.1); RED CELL DISTRIBUTION WIDTH 14.1 % (11.6-14.4); URINE BACTERIA 21.5 uL (0.0-1933)
[2025-03-04 08:49] LABS: URINE CAST 0.29 uL (0.0-1.40); URINE EPITHELIAL CELLS 0.3 uL (0.0-38.8); URINE GLUCOSE >=1000 MG/DL (NEGATIVE); URINE RBC 1.6 uL (0.0-20.8); URINE WBC 0.3 uL (0.0-23.2)
[2025-03-04 08:55] LABS: INR 1.17
[2025-03-04 09:00] LABS: ERYTHROCYTE SEDIMENTATION RATE 5 mm/hr (0-20)
[2025-03-04 09:33] LABS: ALT/SGPT 27.0 U/L (12-78); AST/SGOT 23.0 U/L (15-37); BILIRUBIN TOTAL 1.0 mg/dL (0.3-1.2); BUN CREA RATIO 17.0 (7.0-25.0); CHOL HDL RATIO 1.7 (0-5.0); CREATININE SERUM 1.5 mg/dL (0.70-1.30); GFR 46.13; GLOBULINA 3.3 G/DL (2.4-3.5); GLUCOSE FASTING 102.0 mg/dL (65-100); HDL 57.0 mg/dl (40-60); LDL 27.0 mg/dl (0-130); OSMOLALITY SERUM 292.0 MOSM/KG (275-295); TSH 2.71 uIU/mL (0.358-3.74); VLDL 13.0 (0-39)
== END 2025-03-04 07:56 | disposition home or self-care (01) ==
LOC: LAB 07:51
DX: R50.9 Fever, unspecified (principal); R73.9 Hyperglycemia, unspecified; E78.2 Mixed hyperlipidemia; N39.0 Urinary tract infection, site not specified; E03.8 Other specified hypothyroidism; M06.9 Rheumatoid arthritis, unspecified